=== PATIENT | female | born 1945 | race Caucasian/White ===

== ENCOUNTER 2017-09-17 12:01 | Emergency (ER) | payer MEDICARE, BC ==
--- NOTE | 2017-09-17 12:57 | EDM.PDOC ---
ED HPI GENERAL MEDICAL PROBLEM - General Chief Complaint: General Stated Complaint: HIGH BP; CONFUSED Time Seen by Provider: 09/17/17 12:48 Source of Information: Reports: Patient, Family, RN History Limitations: Reports: Other (confusion) - History of Present Illness INITIAL COMMENTS - FREE TEXT/NARRATIVE: 71 yr female presents with increase in confusion over the last several days and worse over the last day. States hx of cancer and take oncology medication daily. She had an oncology appointment in the last 2 weeks at [facility]. She complains of headache and has this many days. States she did take her pain medicine this am. She does have Tramadol and oxycodone for relief of pain and cough. Pt is alert and ambulatory. - Related Data Allergies Allergy/AdvReac Type Severity Reaction Status Date / Time No Known Allergies Allergy Verified 01/20/13 18:03 Home Meds: Home Meds Axitinib [Inlyta] 5 mg PO BID 09/17/17 [History] Ibuprofen 400 mg PO ASDIRECTED 09/17/17 [History] Levothyroxine 125 mcg PO ACBREAKFAST 30 Days #30 tab 09/17/17 [Rx] Omeprazole 20 mg PO DAILY 09/17/17 [History] Sertraline [Zoloft] 25 mg PO DAILY 09/17/17 [History] amLODIPine [Norvasc] 2.5 mg PO DAILY 30 Days #30 tablet 09/17/17 [Rx] oxyCODONE 5 mg PO ASDIRECTED PRN 09/17/17 [History] rOPINIRole [Requip] 0.5 mg PO ONCALL 09/17/17 [History] traMADol HCl [Tramadol HCl] 50 mg PO ASDIRECTED 09/17/17 [History] ED ROS GENERAL - Review of Systems Review Of Systems: See Below Constitutional: Reports: Weakness, Other (confusion) HEENT: Reports: Glasses, Other (headache) Cardiovascular: Reports: No Symptoms, Other (She does have a port a cath.) Endocrine: Reports: Fatigue GI/Abdominal: Reports: No Symptoms, Other (BM this am) Musculoskeletal: Reports: No Symptoms Skin: Reports: No Symptoms Neurological: Reports: Confusion, Headache ED EXAM, GENERAL - Physical Exam Exam: See Below Exam Limited By: No Limitations General Appearance: Alert Eye Exam: Bilateral Eye: Other (glasses) Ears: Hearing Loss Nose: Normal Inspection Throat/Mouth: Normal Lips, Normal Voice, No Airway Compromise, Other (mouth and lips dry) Head: Atraumatic, Normocephalic Neck: Normal Inspection, Supple, Non-Tender Respiratory/Chest: No Respiratory Distress, Lungs Clear, Normal Breath Sounds Cardiovascular: Normal Peripheral Pulses, Regular Rate, Rhythm, No Edema GI/Abdominal: Normal Bowel Sounds, Soft, Non-Tender, No Distention (Female) Exam: Deferred Rectal (Female) Exam: Deferred Back Exam: Normal Inspection Extremities: Normal Inspection, Normal Range of Motion Neurological: Alert, Oriented, Normal Gait Psychiatric: Normal Affect, Normal Mood Skin Exam: Warm, Dry, Normal Color Lymphatic: No Adenopathy Course - Vital Signs Last Recorded V/S: Last Vital Signs Temp 97.3 F 09/17/17 17:15 Pulse 65 09/17/17 17:15 Resp 16 09/17/17 17:15 BP 149/96 H 09/17/17 17:15 Pulse Ox 97 09/17/17 17:15 - Orders/Labs/Meds Orders: Active Orders 24 hr Category Date Time Status UA W/MICROSCOPIC [URIN] Stat Lab 09/17/17 13:05 Ordered Labs: Laboratory Tests 09/17/17 09/17/17 09/17/17 Range/Units 13:05 13:05 13:05 WBC 10.4 D (4.0-11.0) K/uL RBC 5.72 (3.80-5.80) M/uL Hgb 14.4 D (11.5-16.5) g/dL Hct 45.7 D (37.0-47.0) % MCV 80 (76-96) fL MCH 25.2 L (27.0-32.0) pg MCHC 31.5 (31.0-35.0) g/dL RDW 17.1 H (11.0-16.0) % Plt Count 205 D (150-500) K/uL MPV 9.2 (6.0-10.0) fL Neut % (Auto) 69.5 (45.0-70.0) % Lymph % (Auto) 23.5 (20.0-40.0) % Cherry % (Auto) 4.8 (3.0-10.0) % Eos % (Auto) 1.9 (1.0-5.0) % Baso % (Auto) 0.3 (0.0-0.5) % Neut # (Auto) 7.23 (2.00-7.50) K/uL Lymph # (Auto) 2.44 (1.50-4.00) K/uL Cherry # (Auto) 0.50 (0.20-0.80) K/uL Eos # (Auto) 0.20 (0.04-0.40) K/uL Baso # (Auto) 0.03 (0.02-0.10) K/uL Sodium 140 (136-145) mmol/L Potassium 4.0 (3.5-5.1) mmol/L Chloride 102 (98-107) mmol/L Carbon Dioxide 28.8 (21.0-32.0) mmol/L Anion Gap 13.2 (5.0-15.0) mmol/L BUN 21 D (8-26) mg/dL Creatinine 1.07 H (0.55-1.02) mg/dL Est Cr Clr Drug Dosing TNP Estimated GFR (MDRD) 50 L (>60) MLS/MIN BUN/Creatinine Ratio 19.6 (6-25) Glucose 92 (74-100) mg/dL Calcium 9.1 (8.5-10.1) mg/dL Magnesium (1.8-2.4) mg/dL Total Bilirubin 0.3 (0.0-1.0) mg/dL AST 27 (15-37) U/L ALT 37 (12-78) U/L Alkaline Phosphatase 178 H (46-116) U/L Total Protein 7.4 (6.4-8.2) g/dL Albumin 3.7 (3.4-5.0) g/dL Globulin 3.7 (2.2-4.2) g/dL Albumin/Globulin Ratio 1.0 (0.8-2.0) TSH, Ultra Sensitive (0.358-3.740) uIU/mL Urine Color Yellow Urine Appearance Clear (CLEAR) Urine pH 6.5 (5.0-8.0) Ur Specific [place] 1.010 (1.003-1.030) Urine Protein 100 H (NEGATIVE) mg/dL Urine Glucose (UA) Negative (NEGATIVE) mg/dL Urine Ketones Negative (NEGATIVE) mg/dL Urine Occult Blood Trace-lysed H (NEGATIVE) Urine Nitrite Negative (NEGATIVE) Urine Bilirubin Negative (NEGATIVE) Urine Urobilinogen 0.2 (0.2-1.0) E.U./dL Ur Leukocyte Esterase Negative (NEGATIVE) Urine RBC Not seen /HPF Urine WBC Not seen /HPF Ur Squamous Epith Cells Occasional /HPF Urine Bacteria Rare /HPF 09/17/17 09/17/17 Range/Units 13:05 13:05 WBC (4.0-11.0) K/uL RBC (3.80-5.80) M/uL Hgb (11.5-16.5) g/dL Hct (37.0-47.0) % MCV (76-96) fL MCH (27.0-32.0) pg MCHC (31.0-35.0) g/dL RDW (11.0-16.0) % Plt Count (150-500) K/uL MPV (6.0-10.0) fL Neut % (Auto) (45.0-70.0) % Lymph % (Auto) (20.0-40.0) % Cherry % (Auto) (3.0-10.0) % Eos % (Auto) (1.0-5.0) % Baso % (Auto) (0.0-0.5) % Neut # (Auto) (2.00-7.50) K/uL Lymph # (Auto) (1.50-4.00) K/uL Cherry # (Auto) (0.20-0.80) K/uL Eos # (Auto) (0.04-0.40) K/uL Baso # (Auto) (0.02-0.10) K/uL Sodium (136-145) mmol/L Potassium (3.5-5.1) mmol/L Chloride (98-107) mmol/L Carbon Dioxide (21.0-32.0) mmol/L Anion Gap (5.0-15.0) mmol/L BUN (8-26) mg/dL Creatinine (0.55-1.02) mg/dL Est Cr Clr Drug Dosing Estimated GFR (MDRD) (>60) MLS/MIN BUN/Creatinine Ratio (6-25) Glucose (74-100) mg/dL Calcium (8.5-10.1) mg/dL Magnesium 1.9 (1.8-2.4) mg/dL Total Bilirubin (0.0-1.0) mg/dL AST (15-37) U/L ALT (12-78) U/L Alkaline Phosphatase (46-116) U/L Total Protein (6.4-8.2) g/dL Albumin (3.4-5.0) g/dL Globulin (2.2-4.2) g/dL Albumin/Globulin Ratio (0.8-2.0) TSH, Ultra Sensitive 68.536 H (0.358-3.740) uIU/mL Urine Color Urine Appearance (CLEAR) Urine pH (5.0-8.0) Ur Specific [place] (1.003-1.030) Urine Protein (NEGATIVE) mg/dL Urine Glucose (UA) (NEGATIVE) mg/dL Urine Ketones (NEGATIVE) mg/dL Urine Occult Blood (NEGATIVE) Urine Nitrite (NEGATIVE) Urine Bilirubin (NEGATIVE) Urine Urobilinogen (0.2-1.0) E.U./dL Ur Leukocyte Esterase (NEGATIVE) Urine RBC /HPF Urine WBC /HPF Ur Squamous Epith Cells /HPF Urine Bacteria /HPF Meds: Medications Discontinued Medications Generic Name Dose Route Start Last Admin Trade Name Freq PRN Reason Stop Dose Admin Amlodipine Besylate 2.5 mg 09/17/17 16:14 09/17/17 16:17 Norvasc PO 09/17/17 16:15 2.5 mg ONETIME ONE Administration Clonidine HCl 0.1 mg 09/17/17 13:44 09/17/17 13:47 Catapres PO 09/17/17 13:45 0.1 mg ONETIME ONE Administration Clonidine HCl Confirm 09/17/17 13:49 09/17/17 13:48 Catapres Administered 09/17/17 13:50 Not Given Dose 0.1 mg .ROUTE .STK-MED ONE Hydromorphone HCl 0.5 mg 09/17/17 15:56 09/17/17 16:07 Dilaudid SUBCUT 0.5 mg Q2H PRN Administration Pain Hydromorphone HCl Confirm 09/17/17 16:08 09/17/17 16:55 Dilaudid Administered 09/17/17 16:09 Not Given Dose 4 mg .ROUTE .STK-MED ONE Hydromorphone HCl 0.5 mg 09/17/17 16:45 09/17/17 16:48 Dilaudid SUBCUT 09/17/17 16:46 0.5 mg ONETIME ONE Administration Sodium Chloride 500 mls @ 250 mls/hr 09/17/17 13:44 09/17/17 13:55 Normal Saline IV 09/17/17 15:43 250 mls/hr .BOLUS ONE Administration - Re-Assessments/Exams Free Text/Narrative Re-Assessment/Exam: 09/17/17 16:06 Pt states headache for several weeks now. States her oncologist is aware of this. States she was taking BP medication and this was stopped. Her BP is elevated today and family noticed confusion with quilting today. Clonidine 0.1 mg PO X 1 given for BP. Nacl 500 cc bolus given. Pt states she had a cup of coffee today and ususally has more to drink than that. BP did come down some to 156/99. Headache persists and comes in waves on/off. States she is trying to move to [place] [facility] to be closer to oncology for herself. States has been ill and needs to be closer to his treatment too. States stress with all of this. TC with BRANDON Pang in ER and with pt physician. Didn't know dose of levothyroxin. TSH is elevated today. Will increase levothyroxine by 25. She will need a RX for this to dispense to her online pharmacy. Will increase dose to 125 daily. For this headache will give pt 0.5 mg Dilaudid and this may help her BP too. Pt resting well in ER and family went home briefly. 09/17/17 16:47 Headache persists, will repeat Dilaudid 0.5 mg sq. Rates pain 8 -9. I did review the pt symptoms with Dr Herberth MD, provider as back-up to ER today. Recommends starting Amlodipine for pt. 09/18/17 08:06 LE 09-17-17 17:25 Pt states headache is improved and the headache is coming briefly at times and at other times, she has no pain at all. BP has improved. Amlodipine 2.5 mg PO given in ER and will discharge with Rx for Amlodipine and the increase in her levothyroxine. Lab results reviewed and copies can be made for pt to take to oncology. Pt did have her family pick-up her medications at the local pharmacy. Pt did talk to her daughter on the cell phone and is feeling better. Will discharge pt and Recommend follow-up with PCP and oncologist as scheduled. RTC of ER if symptoms worsen. Pt discharged in no acute distress. Departure - Departure Time of Disposition: 17:30 Disposition: Home, Self-Care 01 Condition: Good Clinical Impression: Headache, Hypertension, Thyroid disorder - Discharge Information Prescriptions: amLODIPine [Norvasc] 2.5 mg PO DAILY 30 Days #30 tablet Levothyroxine 125 mcg PO ACBREAKFAST 30 Days #30 tab Referrals: PCP,None [Primary Care Provider] - Forms: ED Department Discharge Additional Instructions: Take Oxycodone and Tramadol as ordered for pain. Levothyroxine 125mcg daily and Norvasc 2.5mg daily for BP. Follow up with Dr Bella on October 20 as scheduled. - My Orders Last 24 Hours: My Active Orders 09/17/17 13:05 UA W/MICROSCOPIC [URIN] Stat - Assessment/Plan Last 24 Hours: My Active Orders 09/17/17 13:05 UA W/MICROSCOPIC [URIN] Stat
[2017-09-17] MEDS ORDERED: Sodium Chloride 0.9% 500 ML IV ONE (13:44)
[2017-09-17] MEDS ORDERED: cloNIDine 0.1 MG Tab PO ONE (13:44)
[2017-09-17] MEDS ORDERED: cloNIDine 0.1 MG Tab ONE (13:49)
[2017-09-17] MEDS ORDERED: HYDROmorphone 2 MG/ML Syringe SUBCUT PRN (15:56)
[2017-09-17] MEDS ORDERED: HYDROmorphone 4 MG/ML Syringe ONE (16:08)
[2017-09-17] MEDS ORDERED: amLODIPine 2.5 MG Tab PO ONE (16:14)
[2017-09-17] MEDS ORDERED: HYDROmorphone 2 MG/ML Syringe SUBCUT ONE (16:45)
[2017-09-17 17:26] VITALS: BP 149/96
== END 2017-09-17 17:30 | disposition home or self-care (01) ==
LOC: LB.ED 12:01
DX: R51 Headache (principal); I10 Essential (primary) hypertension; E07.9 Disorder of thyroid, unspecified; Z79.899 Other long term (current) drug therapy
CPT/HCPCS: 36415; 80053; 81001; 83735; 84443; 85025; 96372; 99283; 99284-25; A9270-GY; J1170; J7040